=== PATIENT | female | born 1995 | race Caucasian/White ===

== ENCOUNTER 2019-01-14 11:39 | Inpatient (IN) | payer SELFPAY ==
[~2019-01-14] VITALS: Ht 167.6 cm; Wt 61.2 kg
[2019-01-14] MEDS ORDERED: SODIUM CHLORIDE 0.9% 1000ML 1,000 ML IV STA (11:54)
[2019-01-14 12:07] LABS: BASOPHILS % 0.2 % (0.0-1.0); EOSINOPHILS % 0.3 % (0.0-6.0); HEMATOCRIT 38.7 % (34.2-44.1); HEMOGLOBIN 12.4 g/dL (12.0-16.0); LYMPHOCYTES % 14.4 % (18.0-39.1); MEAN CORPUSCULAR HEMOGLOBIN 26.6 pg (28-32); MONOCYTES % 7.1 % (4.4-11.3); NEUTROPHILS # (AUTO) 10.8 (2.1-6.9); NEUTROPHILS % 77.7 % (38.7-80.0); PLATELET COUNT 325 x10e3/uL (140-360); RED BLOOD COUNT 4.66 x10e6/uL (3.6-5.1); RED CELL DISTRIBUTION WIDTH 14.4 % (11.7-14.4)
[2019-01-14 12:11] LABS: BILIRUBIN,URINE NEGATIVE (NEGATIVE); CLARITY,URINE CLOUDY (CLEAR); COLOR,URINE YELLOW (YELLOW); KETONES,URINE NEGATIVE (NEGATIVE); LEUKOCYTE ESTERASE ,URINE MODERATE (NEGATIVE); NITRITE,URINE NEGATIVE (NEGATIVE); PROTEIN,URINE DIPSTICK 1+ (NEGATIVE); URINE UROBILINOGEN 0.2 mg/dL (0.2 - 1)
[2019-01-14 12:13] LABS: PREGNANCY TEST, URINE NEGATIVE (NEGATIVE)
[2019-01-14] MEDS ORDERED: ONDANSETRON HCL INJ 2MG/ML 2ML 2 MG/ML VIAL IV NR (12:15)
[2019-01-14] MEDS ORDERED: MORPHINE SULFATE INJ 4 MG/ML INJ 1ML IV NR (12:15)
[2019-01-14] MEDS ORDERED: ONDANSETRON HCL INJ 2MG/ML 2ML 2 MG/ML VIAL ONE (12:19)
[2019-01-14 12:26] LABS: ALANINE AMINOTRANSFERASE 19 IU/L (0-55); ALBUMIN 3.5 g/dL (3.5-5.0); ALBUMIN/GLOBULIN RATIO 0.9 (0.8-2.0); ALKALINE PHOSPHATASE 62 IU/L (40-150); ANION GAP 13.9 mmol/L (8-16); BLOOD UREA NITROGEN 12 mg/dL (7-26); BUN/CREATININE RATIO 15 (6-25); CALCIUM 9.6 mg/dL (8.4-10.2); CARBON DIOXIDE 26 mmol/L (22-29); CHLORIDE 102 mmol/L (98-107); CREATININE, SERUM 0.79 mg/dL (0.57-1.11); EST GLOMERULAR FILTRATION RATE > 60 ML/MIN (60-); GLUCOSE 103 mg/dL (74-118); POTASSIUM 3.9 mmol/L (3.5-5.1); SODIUM 138 mmol/L (136-145)
[2019-01-14 12:28] LABS: BACTERIA,URINE MANY /HPF; EPITHELIAL CELLS,URINE MANY /LPF; RBC,URINE 0-5 /HPF (0-5); WBC,URINE (MAN) >50 /HPF (0-5)
[2019-01-14] MEDS ORDERED: CEFTRIAXONE SOD 1 GM/NS 50 ML 50 ML IV ONE (12:45)
[2019-01-14] MEDS ORDERED: SODIUM CHLORIDE 0.9% 50ML 50 ML ONE (13:11)
[2019-01-14] MEDS ORDERED: IOPAMIDOL 370 MG/ML 200 ML INFUS..BTL INJ ONE (13:11)
[2019-01-14] MEDS ORDERED: MORPHINE SULFATE INJ 4 MG/ML INJ 1ML IV ONE (14:15)
--- NOTE | 2019-01-14 15:41 | Diagnostic Imaging Report ---
ADDENDUM #1 The right ovary appears prominent with multiple follicles and an approximately 3.5cm cystic structure which more likely represents a dominant follicle rather than focal infection. Signed by: Donald Correa MD on 01/14/2019 4:06 PM ORIGINAL REPORT EXAM: CT Abdomen and Pelvis WITH intravenous contrast INDICATION: Left lower quadrant abdominal pain. COMPARISON: None. TECHNIQUE: Abdomen and pelvis were scanned utilizing a multidetector helical scanner from the lung base to the pubic symphysis after administration of IV contrast. Coronal and sagittal reformations were obtained. Routine protocol was performed. Scan was performed when during portal venous phase. IV CONTRAST: 100 mL of Isovue-370 ORAL CONTRAST: Water COMPLICATIONS: None RADIATION DOSE: Total DLP: 266.94 mGy*cm Dose modulation, iterative reconstruction, and/or weight based adjustment of the mA/kV was utilized to reduce the radiation dose to as low as reasonably achievable. FINDINGS: LOWER THORAX: Normal. HEPATOBILIARY: No focal hepatic lesions. No biliary ductal dilatation. The gallbladder appears unremarkable. SPLEEN: No splenomegaly. PANCREAS: No focal masses or ductal dilatation. ADRENALS: No adrenal nodules. KIDNEYS/URETERS: No hydronephrosis or renal calculi. 1.5 cm left lower pole renal cyst. PELVIC ORGANS/BLADDER: Unremarkable. PERITONEUM / RETROPERITONEUM: No free air or fluid. LYMPH NODES: No lymphadenopathy. VESSELS: Unremarkable. GI TRACT: There is mild thickening of the distalmost appendix with minimal adjacent fat stranding. No evidence of bowel obstruction. BONES AND SOFT TISSUES: Unremarkable. IMPRESSION: Mild distal appendiceal thickening and minimal adjacent fat stranding. Given that the patient's symptoms localize to the left lower quadrant, this is a nonspecific finding. Otherwise, no acute process in the abdomen or pelvis. Signed by: Donald Correa MD on 01/14/2019 3:38 PM
[2019-01-14] MEDS ORDERED: METRONIDAZOLE 500MG/NS 100ML 100 ML IV ONE (16:00)
[2019-01-14] MEDS ORDERED: MORPHINE SULFATE 2 MG/ML SYR 1ML IV PRN (16:15)
[2019-01-14] MEDS ORDERED: MORPHINE SULFATE INJ 4 MG/ML INJ 1ML IV PRN ×2 (16:30→20:30)
[2019-01-14] MEDS ORDERED: CEFOXITIN 2GM/ D5W 50ML 50 ML IV ONE (16:30)
[2019-01-14] MEDS: SODIUM CHLORIDE 0.9% 1000ML 1,000 ML IV SCH (16:31)
--- NOTE | 2019-01-14 17:27 | Consultation ---
DATE OF CONSULTATION: HISTORY OF PRESENT ILLNESS: The patient is seen in the emergency room at the request of the emergency room physician because of lower abdominal pain, bilateral. She is a 23-year-old, sexually active female, who has a history of urinary tract infections over the last two weeks, has been complaining on and off lower abdominal pain, left greater than right. She was seen in the emergency room and treated as an outpatient for UTI. Now, the patient returns at this time to emergency room, where she complains of similar symptoms, mainly lower abdominal pains, left greater than right. This is also associated with vaginal discharge and some dysuria. PAST MEDICAL HISTORY: Unremarkable. PHYSICAL EXAMINATION: In the emergency room reveals a soft abdomen with mild tenderness mainly on the left side of the abdomen. The pelvic exam was performed by the emergency room physician, who has documented that in his EMR. LABORATORY DATA: Labs revealed a white count of 13,000. The urine is consistent with the UTI with gross bacteria and significant amounts of leukocyte esterase. The CT scan reveals no acute abdomen, specifically no evidence of acute appendicitis. There is no evidence of diverticulitis. ASSESSMENT: Incompletely treated urinary tract infection, possibly pelvic inflammatory disease. RECOMMENDATIONS: This patient needs a gynecological evaluation and further treatment by OB Medicine. There is absolutely at this point no reason for any General Surgery intervention. Thank you very much for the courtesy of this consultation. MD MASTER Means/CHYNA /[id number]
--- OUTSIDE RECORDS SUMMARY | 2019-01-14 17:33 | XMS REPORT ---
Author Author [facility] Address Unknown Phone Unavailable Care Team Providers Care Fisheries Manager Name Role Phone IVY ZAHRAA Unavailable Unavailable Payers Payer Name Policy Type Policy Number Effective Date Expiration Date Problems This patient has no known problems. Allergies, Adverse Reactions, Alerts Allergy Name Allergy Type Status Severity Reaction(s) Onset Date Inactive Date Treating Clinician Comments No Known Allergies DA Active U 2017-08-19 00:00:00 Medications This patient has no known medications. Results Test Description Test Time Test Comments Text Results Atomic Results Result Comments CT ABDOMEN/PELVIS W 2019-01-14 15:20:[address] [address] Patient Name: BECCA HOLLIDAY MR #: [id number] : 1995 Age/Sex: 23/F Req #: [id number] Adm Physician: Ordered by: IVY HE, ZAHRAA HE Report #: [id number] Location: ER Room/Bed: Procedure: [id number] CT/CT ABDOMEN/PELVIS W Exam Date: 01/14/19 Exam Time: 1250 REPORT STATUS: Signed ADDENDUM #1 The right ovary appears prominent with multiple follicles and an approximately 3.5cm cystic structure which more likely represents a dominant follicle rather than focal infection. Signed by: Pablo Sandhu MD on 01/14/2019 4:06 PM ORIGINAL REPORT EXAM: CT Abdomen and Pelvis WITH intravenous contrast INDICATION: Left lower quadrant abdominal pain. COMPARISON: None. TECHNIQUE: Abdomen and pelvis were scanned utilizing a multidetector helical scanner from the lung base to the pubic symphysis after administration of IV contrast. Coronal and sagittal reformations were obtained. Routine protocol was performed. Scan was performed when during portal venous phase. IV CONTRAST: 100 mL of Isovue-370 ORAL CONTRAST: Water COMPLICATIONS: None RADIATION DOSE: Total DLP: 266.94 mGy*cm Dose modulation, iterative reconstruction, and/or weight based adjustment of the mA/kV was utilized to reduce the radiation dose to as low as reasonably achievable. FINDINGS: LOWER THORAX: Normal. HEPATOBILIARY: No focal hepatic lesions. No biliary ductal dilatation. The gallbladder appears unremarkable. SPLEEN: No splenomegaly. PANCREAS: No focal masses or ductal dilatation. ADRENALS: No adrenal nodules. KIDNEYS/URETERS: No hydronephrosis or renal calculi. 1.5 cm left lower pole renal cyst. PELVIC O RGANS/BLADDER: Unremarkable. PERITONEUM / RETROPERITONEUM: No free air or fluid. LYMPH NODES: No lymphadenopathy. VESSELS: Unremarkable. GI TRACT: There is mild thickening of the distalmost appendix with minimal adjacent fat stranding. No evidence of bowel obstruction. BONES AND SOFT TISSUES: Unremarkable. IMPRESSION: Mild distal appendiceal thickening and minimal adjacent fat stranding. Given that the patient's symptoms localize to the left lower quadrant, this is a nonspecific finding. Otherwise, no acute process in the abdomen or pelvis. Signed by: Pablo Sandhu MD on 01/14/2019 3:38 PM Dictated By: PABLO SANDHU MD [id number] Transcribed By: STU on 01/14/19 [id number] COPY TO: ZAHRAA HAYNES URINALYSIS COMPLETE 2019-01-09 23:04:00 UA COLOR (test code=COLU) YELLOW YELLOW UA APPEARANCE (test code=APPU) CLOUDY CLEAR UA GLUCOSE DIPSTICK (test code=DGLUU) norm mg/dL NEGATIVE UA BILIRUBIN DIPSTICK (test code=BILU) NEGATIVE mg/dL NEGATIVE UA KETONE DIPSTICK (test code=KETU) neg mg/dL NEGATIVE UA SPECIFIC GRAVITY (test code=SGU) 1.015 1.001-1.035 UA BLOOD DIPSTICK (test code=CAMERON) 250 (4+) Curt/uL NEGATIVE UA PH DIPSTICK (test code=INDIRA) 5.0 5.0-8.0 UA PROTEIN DIPSTICK (test code=PROU) 30 (1+) mg/dL Neg-15 UA UROBILINIOGEN DIPSTICK (test code=URO) norm mg/dL 0.0-0.2 UA NITRITE DIPSTICK (test code=DOLLY) NEGATIVE NEGATIVE UA LEUKOCYTE ESTERASE DIPSTICK (test code=LEUU) 500 Emmie/uL (3+) uL NEGATIVE UA WBC (test code=WBCU) 20-30 per HPF 0-5 UA RBC (test code=RBCU) 3-5 per HPF 0-5 UA EPITHELIAL CELLS (test code=EPIU) Few (2-5/hpf) per HPF Few UA BACTERIA (test code=BACU) MANY per HPF NONE Urine Source? Clean CatchUR HCG [id number] 23:04:00* Test Item Value Reference Range Comments UR HCG QUAL (test code=HCGQLU) NEGATIVE This HCGQL test is NOT applicable for MALE patients.Check with nurse about probable order error.If Tumor Marker Test needed, nurse should order test "HCGTU"(Test #550.04174) Urine Source? Clean CatchURINALYSIS [id number] 23:02:00* Test Item Value Reference Range Comments UA COLOR (test code=COLU) YELLOW YELLOW UA APPEARANCE (test code=APPU) CLOUDY CLEAR UA GLUCOSE DIPSTICK (test code=DGLUU) norm mg/dL NEGATIVE UA BILIRUBIN DIPSTICK (test code=BILU) NEGATIVE mg/dL NEGATIVE UA KETONE DIPSTICK (test code=KETU) neg mg/dL NEGATIVE UA SPECIFIC GRAVITY (test code=SGU) 1.015 1.001-1.035 UA BLOOD DIPSTICK (test code=CAMERON) 250 (4+) Curt/uL NEGATIVE UA PH DIPSTICK (test code=INDIRA) 5.0 5.0-8.0 UA PROTEIN DIPSTICK (test code=PROU) 30 (1+) mg/dL Neg-15 UA UROBILINIOGEN DIPSTICK (test code=URO) norm mg/dL 0.0-0.2 UA NITRITE DIPSTICK (test code=DOLLY) NEGATIVE NEGATIVE UA LEUKOCYTE ESTERASE DIPSTICK (test code=LEUU) 500 Emmie/uL (3+) uL NEGATIVE UA WBC (test code=WBCU) per HPF 0-5 UA RBC (test code=RBCU) per HPF 0-5 UA EPITHELIAL CELLS (test code=EPIU) per HPF Few UA BACTERIA (test code=BACU) per HPF NONE Urine Source? Clean CatchUR HCG [id number] 23:02:00* Test Item Value Reference Range Comments UR HCG QUAL (test code=HCGQLU) NEGATIVE This HCGQL test is NOT applicable for MALE patients.Check with nurse about probable order error.If Tumor Marker Test needed, nurse should order test "HCGTU"(Test #550.11272) Urine Source? Clean CatchURINALYSIS [id number] 22:59:00* Test Item Value Reference Range Comments UA COLOR (test code=COLU) YELLOW YELLOW UA APPEARANCE (test code=APPU) CLOUDY CLEAR UA GLUCOSE DIPSTICK (test code=DGLUU) norm mg/dL NEGATIVE UA BILIRUBIN DIPSTICK (test code=BILU) NEGATIVE mg/dL NEGATIVE UA KETONE DIPSTICK (test code=KETU) neg mg/dL NEGATIVE UA SPECIFIC GRAVITY (test code=SGU) 1.015 1.001-1.035 UA BLOOD DIPSTICK (test code=CAMERON) 250 (4+) Curt/uL NEGATIVE UA PH DIPSTICK (test code=INDIRA) 5.0 5.0-8.0 UA PROTEIN DIPSTICK (test code=PROU) 30 (1+) mg/dL Neg-15 UA UROBILINIOGEN DIPSTICK (test code=URO) norm mg/dL 0.0-0.2 UA NITRITE DIPSTICK (test code=DOLLY) NEGATIVE NEGATIVE UA LEUKOCYTE ESTERASE DIPSTICK (test code=LEUU) 500 Emmie/uL (3+) uL NEGATIVE UA WBC (test code=WBCU) per HPF 0-5 UA RBC (test code=RBCU) per HPF 0-5 UA EPITHELIAL CELLS (test code=EPIU) per HPF Few UA BACTERIA (test code=BACU) per HPF NONE Urine Source? Clean CatchUR HCG [id number] 22:59:00* Test Item Value Reference Range Comments UR HCG QUAL (test code=HCGQLU) Urine Source? Clean Catch
[2019-01-14] MEDS ORDERED: METRONIDAZOLE 500MG/NS 100ML IV SCH (18:00)
[2019-01-14] MEDS: ONDANSETRON HCL INJ 2MG/ML 2ML 2 MG/ML VIAL IV PRN (18:07)
--- NOTE | 2019-01-14 18:37 | NUR ---
PATIENT ARRIVED FROM ER TO ROOM 288, SHE IS IN STABLE CONDITION. FAMILY MEMBER AT BEDSIDE.
--- NOTE | 2019-01-14 18:56 | Diagnostic Imaging Report ---
EXAM: Transabdominal and Transvaginal Pelvic Ultrasound INDICATION: Left lower quadrant pain ^PAIN, PID, TOA COMPARISON: None TECHNIQUE: Grayscale transverse and sagittal transabdominal and transvaginal images were obtained of the pelvis. Transvaginal imaging was medically necessary to better evaluate the endometrium and the adnexa. CLINICAL HISTORY: 23 year old A0; last menstrual period: .... FINDINGS: Uterus Orientation: Normal Size: 8.7 x 3.6 x 5.1 cm, Normal Mass: None Cervix: Possible nabothian cysts. Endometrium: Thickness: 0.8 cm, Normal. Appearance: Homogeneous echotexture without focal thickening. Right ovary: Size: 4.5 x 3.8 x 4.6 cm Mass/Cyst: 2.1 x 1.3 x 2.7 cm right ovarian cyst containing a 0.4 x 0.4 x 0.5 cm round peripherally echogenic structure resembling an early yolk sac. 1.3 x 0.8 x 1.4 cm hypoechoic mass/lesion in the peripheral right ovary of unknown clinical significance. Left ovary: Size: 2.9 x 2.2 x 2.9 cm Mass/Cyst: None Adnexa: Normal Cul-de-sac: Small free fluid IMPRESSION: 2.1 x 1.3 x 2.7 cm right ovarian cyst containing a 0.4 x 0.4 x 0.5 cm round peripherally echogenic structure resembling an early yolk sac. Correlate with beta hCG and follow-up pelvic ultrasound is recommended. 1.3 x 0.8 x 1.4 cm hypoechoic mass/lesion in the peripheral right ovary of unknown clinical significance. Small amount of free pelvic fluid. Possible nabothian cysts. Signed by: Dr. Dane German M.D. on 01/14/2019 6:53 PM
--- NOTE | 2019-01-14 19:09 | NUR ---
REPORT GIVEN TO ONCOMING NURSE, PATIENT IS RESTING IN BED. FAMILY AT BEDSIDE. NO ACUTE DISTRESS NOTED. CALL LIGHT WITHIN REACH. BED IN THE LOWEST POSITION.
[2019-01-14] MEDS ORDERED: ACETAMINOPHEN 325 MG TAB PO PRN (19:45)
[2019-01-14 20:00] VITALS: BP 110/58
[2019-01-14 21:15] VITALS: BP 110/58
[2019-01-14 21:19] VITALS: BP 110/58
[2019-01-14] MEDS: METRONIDAZOLE 500MG/NS 100ML 100 ML IV SCH (23:29)
[2019-01-15] VITALS (8 sets, daily range): BP systolic 93–120; BP diastolic 56–64
[2019-01-15] MEDS: CEFOXITIN 1GM/ D5W 50ML 50 ML IV SCH ×3 (00:54→12:58)
[2019-01-15 03:28] LABS: BASOPHILS % 0.2 % (0.0-1.0); EOSINOPHILS # (AUTO) 0.1 (0.0-0.4); EOSINOPHILS % 0.7 % (0.0-6.0); HEMOGLOBIN 10.5 g/dL (12.0-16.0); LYMPHOCYTES # (AUTO) 1.4 (1.0-3.2); LYMPHOCYTES % 13.9 % (18.0-39.1); MEAN CORPUSCULAR HEMOGLOBIN 26.6 pg (28-32); MEAN CORPUSCULAR HGB CONC 31.8 g/dL (31-35); MEAN CORPUSCULAR VOLUME 83.5 fL (81-99); MONOCYTES # (AUTO) 0.9 (0.2-0.8); MONOCYTES % 9.1 % (4.4-11.3); NEUTROPHILS # (AUTO) 7.4 (2.1-6.9); NEUTROPHILS % 75.7 % (38.7-80.0); PLATELET COUNT 257 x10e3/uL (140-360); RED BLOOD COUNT 3.95 x10e6/uL (3.6-5.1); RED CELL DISTRIBUTION WIDTH 14.3 % (11.7-14.4)
[2019-01-15] MEDS: HYDROCODONE/APAP 5MG-325MG TAB PO PRN ×4 (03:47→20:00)
[2019-01-15 03:49] LABS: ALANINE AMINOTRANSFERASE 12 IU/L (0-55); ALBUMIN 2.7 g/dL (3.5-5.0); ALBUMIN/GLOBULIN RATIO 0.9 (0.8-2.0); ALKALINE PHOSPHATASE 54 IU/L (40-150); ANION GAP 10.5 mmol/L (8-16); BLOOD UREA NITROGEN 7 mg/dL (7-26); BUN/CREATININE RATIO 9 (6-25); CALCIUM 8.5 mg/dL (8.4-10.2); CARBON DIOXIDE 26 mmol/L (22-29); CHLORIDE 105 mmol/L (98-107); CREATININE, SERUM 0.74 mg/dL (0.57-1.11); EST GLOMERULAR FILTRATION RATE > 60 ML/MIN (60-); GLUCOSE 128 mg/dL (74-118); POTASSIUM 3.5 mmol/L (3.5-5.1); SODIUM 138 mmol/L (136-145)
[2019-01-15] MEDS: METRONIDAZOLE 500MG/NS 100ML 100 ML IV SCH ×4 (05:02→23:00)
[2019-01-15] MEDS: SODIUM CHLORIDE 0.9% 1000ML 1,000 ML IV SCH ×2 (06:49→17:00)
--- NOTE | 2019-01-15 06:54 | NUR ---
RECEIVED PATIENT RESTING IN BED. RESPIRATIONS EVEN AND UNLABORED, NO ACUTE DISTRESS NOTED. CALL LIGHT WITHIN REACH. BED IN THE LOWEST POSITION.
[2019-01-15] MEDS ORDERED: POLYETHYLENE GLYCOL 3350 17 GM PACK PO PRN (07:45)
[2019-01-15] MEDS: FAMOTIDINE 20 MG TAB PO SCH ×2 (08:43→17:00)
--- NOTE | 2019-01-15 17:02 | Consultation ---
DATE OF CONSULTATION: HISTORY: Thank you very much for asking me to see this 23-year-old, 0 with last menstrual period on 12/29/2018, who came into the ER complaining of bilateral lower abdominal pain that was gradually getting worse over the last few days. She describes the pain as being dull aching with bouts of sharp and crampy pain. The pain is relieved by oral pain medications, but no nausea, no vomiting. She is on no contraception. Pain has not radiated to anywhere else in her body. She has vaginal discharge, white and smelly. No dysuria. No history of sexually transmitted disease. PAST MEDICAL HISTORY: Not significant. PAST SURGICAL HISTORY: Not significant. ALLERGIES: NO KNOWN DRUG ALLERGIES. MEDICATIONS: She is on no medications. SOCIAL HISTORY: She denies smoking cigarettes, but admits to marijuana usage and alcohol occasionally. PHYSICAL EXAMINATION: VITAL SIGNS: Stable. CHEST: Clear to auscultation. CARDIOVASCULAR: Regular ate and rhythm. ABDOMEN: Soft, but tender in the lower abdomen. ASSESSMENT AND PLAN: A 23-year-old 0 with signs and symptoms of pelvic inflammatory disease. Her white cell count has improved, however, she still is quite tender. We will continue the IV antibiotics. She will be sent home on doxycycline 100 mg twice a day and Flagyl 250 three times a day for 14 days and we will be happy to see her in the office after her release from the hospital. Kelley Godwin MD DD/CHYNA /[id number] cc: Apolinar Flores MD
[2019-01-15] MEDS: DOXYCYCLINE 100MG/NS 100ML 100 ML IV SCH (18:05)
--- NOTE | 2019-01-15 19:40 | NUR ---
REPORT GIVEN TO ONCOMING NURSE, WALKING ROUNDS DONE. PATIENT IS RESTING IN BED. NO ACUTE DISTRESS NOTED. SISTER AT BEDSIDE. CALL LIGHT WITHIN REACH. BED IN THE LOWEST POSITION.
--- NOTE | 2019-01-15 19:47 | NUR ---
RECEIVED PT IN RESTROOM AOX3 C/O PAIN .FAMILY AT THE BEDSIDE .CALL LIGHT WITH IN REACH .CONTINUE TO MONITOR
[2019-01-16] VITALS: BP 121/67
[2019-01-16 00:30] VITALS: BP 115/64
[2019-01-16] MEDS: ONDANSETRON HCL INJ 2MG/ML 2ML 2 MG/ML VIAL IV PRN (00:30)
[2019-01-16] MEDS: HYDROCODONE/APAP 5MG-325MG TAB PO PRN ×2 (00:39→05:48)
[2019-01-16 04:00] VITALS: BP 111/70
[2019-01-16] MEDS: SODIUM CHLORIDE 0.9% 1000ML 1,000 ML IV SCH (04:16)
[2019-01-16] MEDS: METRONIDAZOLE 500MG/NS 100ML 100 ML IV SCH (05:00)
[2019-01-16] MEDS ORDERED: TYLENOL WITH C1 EACH PO (05:05)
[2019-01-16] MEDS ORDERED: METRONIDAZOLE250 MG PO (05:05)
[2019-01-16] MEDS ORDERED: DOXYCYCLINE HY100 MG PO (05:05)
[2019-01-16 05:58] LABS: BASOPHILS % 0.4 % (0.0-1.0); EOSINOPHILS # (AUTO) 0.1 (0.0-0.4); EOSINOPHILS % 1.3 % (0.0-6.0); HEMATOCRIT 33.6 % (34.2-44.1); HEMOGLOBIN 10.4 g/dL (12.0-16.0); LYMPHOCYTES % 26.1 % (18.0-39.1); MONOCYTES # (AUTO) 0.6 (0.2-0.8); MONOCYTES % 8.6 % (4.4-11.3); NEUTROPHILS # (AUTO) 4.7 (2.1-6.9); NEUTROPHILS % 63.3 % (38.7-80.0); PLATELET COUNT 245 x10e3/uL (140-360); RED CELL DISTRIBUTION WIDTH 14.1 % (11.7-14.4)
[2019-01-16 06:23] LABS: ANION GAP 11.1 mmol/L (8-16); BLOOD UREA NITROGEN 7 mg/dL (7-26); BUN/CREATININE RATIO 10 (6-25); CALCIUM 8.7 mg/dL (8.4-10.2); CARBON DIOXIDE 27 mmol/L (22-29); CHLORIDE 106 mmol/L (98-107); CREATININE, SERUM 0.69 mg/dL (0.57-1.11); EST GLOMERULAR FILTRATION RATE > 60 ML/MIN (60-); GLUCOSE 87 mg/dL (74-118); POTASSIUM 4.1 mmol/L (3.5-5.1); SODIUM 140 mmol/L (136-145)
[2019-01-16] MEDS: DOXYCYCLINE 100MG/NS 100ML 100 ML IV SCH (06:30)
--- NOTE | 2019-01-16 06:31 | NUR ---
PT C/O PAIN ANDGIVEN ORDERED PAIN MEDICATION FAMILY AT THE BEDSIDE .CALL LIGHT WITH IN REACH CONTINUE TO MONITOR
--- NOTE | 2019-01-16 07:00 | NUR ---
RECEIVED AM REPORT FROM RN, MORNING ROUNDS DONE. PT IS ALERT, NO S/S OF DISTRESS. CALL LIGHT WITHIN REACH. IVF RUNNING AT 125ML/HR AT R AC. IV SITE IS ASYMPTOMATIC.
--- NOTE | 2019-01-16 07:24 | NUR ---
REPORT GIVEN TO THE ONCOMING NURSE
[2019-01-16 08:07] VITALS: BP 111/52
[2019-01-16 08:30] VITALS: BP 111/52
[2019-01-16] MEDS ORDERED: ONDANSETRON HCL 4 MG ORAL DISINTEGRATING TAB PO PRN (09:45)
--- NOTE | 2019-01-17 05:35 | Discharge Summary ---
ADMISSION DIAGNOSES: Left lower quadrant abdominal pain and urinary tract infection with sepsis. DISCHARGE DIAGNOSES: Left lower quadrant abdominal pain, urinary tract infection with sepsis, pelvic inflammatory disease plus right ovarian cyst/rule out appendicitis. HISTORY: The patient has a history of ovarian cyst and frequent UTIs. SURGICAL HISTORY: None. FAMILY HISTORY: None. SOCIAL HISTORY: The patient admits to occasional alcohol and marijuana use. HOSPITAL COURSE: 23-year-old female with history of frequent UTIs, admits with sharp left lower quadrant abdominal pain that began 2 weeks ago. She went to the ER and got unknown antibiotics, but the pain continued. This morning the pain began, becoming sharp and intermittent with nausea, sweating, and cramping. She is sexually active with one person for four years. She is not aware of any STDs. She complains of foul smelling vaginal discharge that is white, but denies fever. On admission, the patient was started on antibiotics, Mefoxin, and Flagyl. The patient had a transvaginal ultrasound that showed a right ovarian cyst and lesion. She was advised to follow up with [facility] for those. CT of the abdomen showed mild distal appendiceal thickening and minimal adjacent fat stranding. Surgery was consulted, who did not think that this was appendicitis, so [facility] was consulted, who diagnosed the patient with PID. They recommended discharge her home with doxycycline 100 twice a day and Flagyl 250 three times a day, both for 14 days. She will follow up with primary care in 1 to 2 weeks and [facility] as discussed. Her wet prep came back negative for yeast, bacteria, Trichomonas and clue cells. The patient will discharge home with Tylenol No. 3, doxycycline, and Flagyl. The patient and mom understand discharge instructions and agreed to plan. Vital signs were stable, the patient is afebrile. Dictated by Beryl Machuca NP MD PERCY Schulz/MODL /[id number]
== END 2019-01-16 09:58 | disposition home or self-care (01) | DRG 872 ==
LOC: ER 11:39 → ERHOLD 16:01 → MED/SURG3 18:37
PROVIDERS: ADMIT Internal Medicine; ATTEND Internal Medicine
DX: A41.9 Sepsis, unspecified organism (principal); N39.0 Urinary tract infection, site not specified; N73.9 Female pelvic inflammatory disease, unspecified; N83.201 Unspecified ovarian cyst, right side
CPT/HCPCS: 36415; 74177; 76830; 80048; 80053; 81001; 81025; 84702; 85025; 85651; 87081; 87086; 87205; 87210; 87800; 99284; J0694; J0696; J2270; J2405; J7030; Q9967

== ENCOUNTER 2025-04-28 12:08 | Emergency (ER) | payer OTHER ==
[~2025-04-28] VITALS: Ht 172.7 cm; Wt 79.4 kg
[~2025-04-28 12:08] MED LIST: DOXYCYCLINE HY100 MG PO; METRONIDAZOLE250 MG PO; TYLENOL WITH C1 EACH PO
[2025-04-28 12:21] VITALS: TEMP 97.9
[2025-04-28] MEDS: SODIUM CHLORIDE 0.9% 1000ML 1,000 ML IV ONE (12:38)
[2025-04-28] MEDS: ONDANSETRON HCL INJ 2MG/ML 2ML 2 MG/ML VIAL IV STA (12:38)
[2025-04-28 12:46] LABS: BASOPHILS % 0.2 % (0.0-1.0); EOSINOPHILS % 1.5 % (0.0-6.0); LYMPHOCYTES % 16.2 % (18.0-39.1); MONOCYTES % 11.3 % (4.4-11.3); NEUTROPHILS % 70.7 % (38.7-80.0); RED CELL DISTRIBUTION WIDTH 15.7 % (11.7-14.4)
[2025-04-28 13:01] LABS: LEUKOCYTE ESTERASE ,URINE NEGATIVE (NEGATIVE)
[2025-04-28 13:02] LABS: EPITHELIAL CELLS,URINE MANY /LPF; PROTEIN,URINE DIPSTICK 1+ (NEGATIVE); URINE UROBILINOGEN 0.2 mg/dL (0.2 - 1)
[2025-04-28 13:12] LABS: EST GLOMERULAR FILTRATION RATE 121 ML/MIN (>=60)
[2025-04-28] MEDS ORDERED: IOPAMIDOL 370 MG/ML 100 ML INFUS..BTL INJ ONE (13:13)
[2025-04-28 14:02] VITALS: PULSE 89; RESP 16; O2SAT 98
[2025-04-28] MEDS ORDERED: ONDANSETRON ODT4 MG PO (15:12)
[2025-04-28] MEDS ORDERED: DICYCLOMINE HCL20 MG PO (15:12)
== END 2025-04-28 15:24 | disposition home or self-care (01) ==
LOC: ER 12:18
DX: R19.7 Diarrhea, unspecified (principal); R11.2 Nausea with vomiting, unspecified; R10.32 Left lower quadrant pain; M54.50 Low back pain, unspecified
CPT/HCPCS: 36415; 74177; 80053; 81001; 83690; 84702; 85025; 99283; J2405; J7030; Q9967